=== PATIENT | male | born 1975 | race Caucasian/White ===

== ENCOUNTER 2018-07-01 06:34 | Emergency (ER) | payer BC ==
[2018-07-01 07:18] LABS: Protime INR 1.07
[2018-07-01 07:34] LABS: ALT/SGPT 25 U/L (12-78); AST/SGOT 13 U/L (15-37); Albumin 3.6 g/dL (3.4-5.0); Alkaline Phosphatase 63 U/L (45-117); BUN Blood Urea Nitrogen 18 mg/dL (7-18); Bicarbonate 28 mmol/L (21-32); Bilirubin Direct 0.1 mg/dL (0-0.2); Bilirubin Total 0.4 mg/dL (0.2-1.0); Glucose Level 106 mg/dL (74-106); Magnesium 2.2 mg/dL (1.8-2.4); NT PRO-BNP 30 pg/mL (<125); Potassium 3.9 mmol/L (3.5-5.1); Protein, Total 6.7 g/dL (6.4-8.2); Sodium Level 142 mmol/L (136-145); Troponin (Emerg Dept Use Only) < 0.02 ng/mL (0.0-0.045)
--- NOTE | 2018-07-01 07:41 | RAD REPORT ---
EXAM DESCRIPTION: CT - Head Brain Wo Cont - 07/01/2018 7:15 am CLINICAL HISTORY: Dizziness COMPARISON: None. TECHNIQUE: Computed axial tomography of the head was obtained. IV contrast was not requested. All CT scans are performed using dose optimization technique as appropriate and may include automated exposure control or mA/KV adjustment according to patient size. FINDINGS: An intracranial bleed is not seen . The ventricles are normal in caliber. No extra-axial fluid collection is noted. Fluid within the sinuses/ mastoids is not seen. A mucus retention cyst is seen within the left maxill twin sinus IMPRESSION: No acute intracranial abnormality is seen. If patient's symptoms persist MRI of the bra in would be recommended.
[2018-07-01] MEDS ORDERED: NA CHLORIDE 0.9% 1,000 ML ONE (07:59)
[2018-07-01 08:06] LABS: Absolute Lymphocytes (CBC) 1.7 K/uL (0.7-4.9); Absolute Monocytes 0.9 K/uL (0.1-1.3); Absolute Neutrophil 9.4 K/uL (1.8-8.0); Basophils % 0.5 % (0-1.3); Eosinophils % 1.3 % (0-4.4); Hematocrit 44.9 % (39.6-49.0); Lymphocytes % 13.7 % (15.3-44.8); Monocytes % 7.7 % (3.3-12.3); RBC Red Blood Cell Count 5.15 M/uL (4.33-5.43)
--- NOTE | 2018-07-01 08:07 | RAD REPORT ---
EXAM DESCRIPTION: Pily Single View07/01/2018 7:10 am CLINICAL HISTORY: Chest pain COMPARISON: none FINDINGS: The lungs appear clear of acute infiltrate. The heart is normal size IMPRESSION: No acute abnormalities displayed
--- NOTE | 2018-07-01 08:38 | EDPHYS ---
Physician Documentation [facility] Name: Javier Kirby Age: 43 yrs Sex: Male : 1975 Arrival Date: 07/01/2018 Time: 06:35 Bed 19 Private MD: ED Physician Francesco Vázquez HPI: 07/01 06:51 This 43 yrs old Male presents to ER via Ambulatory with complaints of kb Dizziness. 06:51 The patient presents with feeling faint, lightheadedness. Onset: The symptoms/episode kb began/occurred just prior to arrival. Context: occurred on a street or driveway, occurred while the patient was driving. just prior to the episode the patient experienced no apparent symptoms. Modifying factors: The symptoms are alleviated by nothing, the symptoms are aggravated by nothing. Associated signs and symptoms: Pertinent positives: near-syncope, Pertinent negatives: abdominal pain, agitation, ataxia, blurred vision, chest pain, combativeness, confusion, diaphoresis, focal weakness, head injury, headache, nausea, numbness, palpitations, , seizure, shortness of breath, syncope, tingling, vomiting. Severity of symptoms: At their worst the symptoms were moderate in the emergency department the symptoms are unchanged. Patient's baseline: Neuro: alert and fully oriented, Motor: no deficits, Ambulation: walks without assistance, Speech: normal. The patient has not experienced similar symptoms in the past. The patient has not recently seen a physician. Pt reports he started feeling like he was going to pass out when he got into his car. Symptoms got worse as he drove to work. States he had dropped off his kids at daycare and driven to the convenient store prior to incident and did not have these symptoms, they started after leaving convenient store. States he felt lightheaded and like he was going to pass out. Once he got to work he called his boss to his truck and they told him he needed to be evaluated. Pt worried that his blood sugar is the cause. Reports he was diagnosed with borderline diabetes and diabetes runs in his family. Pt is on 3 blood pressure medications, but has not had a problem with them in the past. . Historical: - Allergies: 06:49 No Known Allergies; fc - Home Meds: 06:49 doxazosin oral oral 2 mg tab and 1 mg tab both daily [Active]; amlodipine oral once fc daily [Active]; - PMHx: 06:49 Hypertension; fc - PSHx: 06:49 Knee surgery; fc - Immunization history:: Last tetanus immunization: unknown, Flu vaccine is not up to date. - Social history:: Smoking status: Patient/guardian denies using tobacco, Patient/guardian denies using alcohol, street drugs. - Ebola Screening: : Patient negative for fever greater than or equal to 101.5 degrees Fahrenheit, and additional compatible Ebola Virus Disease symptoms Patient denies exposure to infectious person Patient denies travel to an Ebola-affected area in the 21 days before illness onset. ROS: 06:49 Constitutional: Negative for fever, chills, and weight loss, ENT: Negative for injury, kb pain, and discharge, Neck: Negative for injury, pain, and swelling, Cardiovascular: Negative for chest pain, palpitations, and edema, Respiratory: Negative for shortness of breath, cough, wheezing, and pleuritic chest pain, Abdomen/GI: Negative for abdominal pain, nausea, vomiting, diarrhea, and constipation, MS/Extremity: Negative for injury and deformity, Skin: Negative for injury, rash, and discoloration. 06:49 Neuro: Positive for near syncope. Exam: 06:51 Constitutional: This is a well developed, well nourished patient who is awake, alert, kb and in no acute distress. Head/Face: Normocephalic, atraumatic. Eyes: Pupils equal round and reactive to light, extra-ocular motions intact. Lids and lashes normal. Conjunctiva and sclera are non-icteric and not injected. Cornea within normal limits. Periorbital areas with no swelling, redness, or edema. ENT: Nares patent. No nasal discharge, no septal abnormalities noted. Tympanic membranes are normal and external auditory canals are clear. Oropharynx with no redness, swelling, or masses, exudates, or evidence of obstruction, uvula midline. Mucous membranes moist. Neck: Trachea midline, no thyromegaly or masses palpated, and no cervical lymphadenopathy. Supple, full range of motion without nuchal rigidity, or vertebral point tenderness. No Meningismus. Chest/axilla: Normal chest wall appearance and motion. Nontender with no deformity. No lesions are appreciated. Cardiovascular: Regular rate and rhythm with a normal S1 and S2. No gallops, murmurs, or rubs. Normal PMI, no JVD. No pulse deficits. Respiratory: Lungs have equal breath sounds bilaterally, clear to auscultation and percussion. No rales, rhonchi or wheezes noted. No increased work of breathing, no retractions or nasal flaring. Abdomen/GI: Soft, non-tender, with normal bowel sounds. No distension or tympany. No guarding or rebound. No evidence of tenderness throughout. Back: No spinal tenderness. No costovertebral tenderness. Full range of motion. Skin: Warm, dry with normal turgor. Normal color with no rashes, no lesions, and no evidence of cellulitis. MS/ Extremity: Pulses equal, no cyanosis. Neurovascular intact. Full, normal range of motion. Neuro: Awake and alert, GCS 15, oriented to person, place, time, and situation. Cranial nerves II-XII grossly intact. Motor strength 5/5 in all extremities. Sensory grossly intact. Cerebellar exam normal. Normal gait. Vital Signs: 06:38 BP 138 / 77; Pulse 91; Resp 18; Temp 98.1(O); Pulse Ox 99% on R/A; Weight 86.18 kg (R); fc Height 5 ft. 10 in. (177.80 cm); Pain 0/10; 06:55 BP 114 / 60 Supine; Pulse 77; Resp 16; Pulse Ox 98% ; rr5 06:56 BP 115 / 74 Sitting; Pulse 80; Resp 17; Pulse Ox 97% ; rr5 06:57 BP 113 / 63 Standing; Pulse 90; Resp 17; Pulse Ox 96% ; rr5 06:38 Body Mass Index 27.26 (86.18 kg, 177.80 cm) NIH Stroke Scale Scores: 06:51 NIHSS Score: 0 kb MDM: 06:40 Patient medically screened. kb 06:50 Data reviewed: vital signs, nurses notes. Data interpreted: Pulse oximetry: on room air kb is 99 %. Interpretation: normal. 08:37 Counseling: I had a detailed discussion with the patient and/or guardian regarding: the kb historical points, exam findings, and any diagnostic results supporting the discharge/admit diagnosis, lab results, radiology results, the need for outpatient follow up, a family practitioner, to return to the emergency department if symptoms worsen or persist or if there are any questions or concerns that arise at home. 08:37 ED course: Pt reports he feels completely back to normal. States "it's like nothing kb ever happened, I can't explain it.". 07/01 06:48 Order name: Basic Metabolic Panel; Complete Time: 07:38 kb 07/01 06:48 Order name: CBC with Diff kb 07/01 06:48 Order name: LFT's; Complete Time: 07:38 kb 07/01 06:48 Order name: Magnesium; Complete Time: 07:38 kb 07/01 06:48 Order name: NT PRO-BNP; Complete Time: 07:38 kb 07/01 06:48 Order name: PT-INR; Complete Time: 07:43 kb 07/01 06:48 Order name: Troponin (emerg Dept Use Only); Complete Time: 07:38 kb 07/01 06:48 Order name: XRAY Chest (1 view); Complete Time: 08:09 kb 07/01 06:48 Order name: EKG; Complete Time: 06:49 kb 07/01 06:48 Order name: Cardiac monitoring; Complete Time: 07:18 kb 07/01 06:48 Order name: EKG - Nurse/Tech; Complete Time: 07:18 kb 07/01 06:48 Order name: CT Head Brain wo Cont; Complete Time: 07:43 kb 07/01 09:31 Order name: Urine Dipstick--Ancillary (enter results) bd 07/01 06:48 Order name: IV Saline Lock; Complete Time: 07:18 kb 07/01 06:48 Order name: Labs collected and sent; Complete Time: 07:18 kb 07/01 06:48 Order name: O2 Per Protocol; Complete Time: 06:50 kb 07/01 06:48 Order name: O2 Sat Monitoring; Complete Time: 06:50 kb 07/01 06:48 Order name: Orthostatics; Complete Time: 07:18 kb 07/01 06:48 Order name: Blood Glucose Level; Complete Time: 07:18 kb Administered Medications: 08:05 Drug: NS 0.9% 1000 ml Route: IV; Rate: 1000 ml; Site: right antecubital; ph Point of Care Testing: Blood Glucose: 07:00 Blood Glucose: 99 mg/dL; rr5 Ranges: Critical Glucose Levels:Adult <50 mg/dl or >400 mg/dl <40 mg/dl or >180 mg/dl Disposition: 07/01/18 08:37 Discharged to Home. Impression: Dizziness and giddiness. - Condition is Stable. - Discharge Instructions: Near-Syncope, [id number], Dizziness, [id number]. - Medication Reconciliation Form, Thank You Letter, Antibiotic Education, Prescription Opioid Use, Work release form form. - Follow up: Emergency Department; When: As needed; Reason: Worsening of condition. Follow up: Private Physician; When: 2 - 3 days; Reason: Recheck today's complaints, Continuance of care, Re-evaluation by your physician. NIH Stroke Scale - NIH Stroke Score Date: 07/01/2018 Time: 06:51 Total Score = 0 1a. Level of Consciousness (LOC) - 0(Alert) 1b. Level of Consciousness (LOC) (Year \\T\\ Age) - 0(Both) 1c. LOC Commands (Open \\T\\ Closes Eyes/[employer] Mdm Developer) - 0(Both) 2. Best Gaze (Lateral Gaze Paresis) - 0(Normal) 3. Visual Field Loss - 0(No visual loss) 4. Facial Palsy - 0(Normal) 5a. Left Arm: Motor (10-second hold) - 0(No drift) 5b. Right Arm: Motor (10-second hold) - 0(No drift) 6a. Left Leg: Motor (5-second hold - always test supine) - 0(No drift) 6b. Right Leg: Motor (5-second hold - always test supine) - 0(No drift) 7. Limb Ataxia (finger/nose \\T\\ heel/fernandez - test with eyes open) - 0(Absent) 8. Sensory Loss (pinprick arms/legs/face) - 0(Normal) 9. Best Language: Aphasia (description/naming/reading) - 0(No aphasia) 10. Dysarthria (speech clarity - read or repeat words) - 0(Normal) 11. Extinction and Inattention (visual/tactile/auditory/spatial/personal) - 0(No abnormality) Initials: kb Addendum: 07/03/2018 11:18 Co-signature as Attending Physician, Francesco Vázquez MD I agree with the [facility] assessment and plan of care. Signatures: Dispatcher [employer] Gia Chinchilla, ENGINEERING SUPPLIES SALES-C ENGINEERING [employer]PPL[employer] SALES-Francesco Mcfarland MD MD cha Chretien, Felicia, RN RN fc Carol Zurita RN RN ph Corrections: (The following items were deleted from the chart) 07/01 09:40 08:37 07/01/2018 08:37 Discharged to Home. Impression: Dizziness and giddiness. ph Condition is Stable. Forms are Medication Reconciliation Form, Thank You Letter, Antibiotic Education, Prescription Opioid Use. Follow up: Emergency Department; When: As needed; Reason: Worsening of condition. Follow up: Private Physician; When: 2 - 3 days; Reason: Recheck today's complaints, Continuance of care, Re-evaluation by your physician. kb
--- NOTE | 2018-07-01 08:38 | ER ---
Nurse's Notes [facility] Name: Javier Kirby Age: 43 yrs Sex: Male : 1975 Arrival Date: 07/01/2018 Time: 06:35 Bed 19 Private MD: Diagnosis: Dizziness and giddiness Presentation: 07/01 06:38 Presenting complaint: Patient states: that he was driving to work and felt as if he was fc going to pass out. Having trouble concentrating. Feels very faint. Symptoms worse when he is moving. Transition of care: patient was not received from another setting of care. Onset of symptoms was July 01, 2018. Risk Assessment: Do you want to hurt yourself or someone else? Patient reports no desire to harm self or others. Initial Sepsis Screen: Does the patient meet any 2 criteria? HR > 90 bpm. Yes Does the patient have a suspected source of infection? No. Patient's initial sepsis screen is negative. Care prior to arrival: None. 06:38 Method Of Arrival: Ambulatory fc 06:38 Acuity: CLIFTON 3 fc Historical: - Allergies: 06:49 No Known Allergies; fc - Home Meds: 06:49 doxazosin oral oral 2 mg tab and 1 mg tab both daily [Active]; amlodipine oral once fc daily [Active]; - PMHx: 06:49 Hypertension; fc - PSHx: 06:49 Knee surgery; fc - Immunization history:: Last tetanus immunization: unknown, Flu vaccine is not up to date. - Social history:: Smoking status: Patient/guardian denies using tobacco, Patient/guardian denies using alcohol, street drugs. - Ebola Screening: : Patient negative for fever greater than or equal to 101.5 degrees Fahrenheit, and additional compatible Ebola Virus Disease symptoms Patient denies exposure to infectious person Patient denies travel to an Ebola-affected area in the 21 days before illness onset. Screenin:00 Abuse screen: Denies threats or abuse. Denies injuries from another. Nutritional rr5 screening: No deficits noted. Tuberculosis screening: No symptoms or risk factors identified. Fall Risk IV access (20 points). Total Francis Fall Scale indicates No Risk (0-24 pts). Assessment: 06:40 General: Appears in no apparent distress. comfortable, Behavior is calm, cooperative, rr5 appropriate for age. 06:40 Pain: Denies pain. Neuro: Level of Consciousness is awake, alert, obeys commands, rr5 Oriented to person, place, time, Reports dizziness, feels gonna faint and getting worse when I move.. Cardiovascular: Capillary refill < 3 seconds Patient's skin is warm and dry. Respiratory: Airway is patent Respiratory effort is even, unlabored, Respiratory pattern is regular, symmetrical. GI: No signs and/or symptoms were reported involving the gastrointestinal system. : No signs and/or symptoms were reported regarding the genitourinary system. EENT: No signs and/or symptoms were reported regarding the EENT system. Derm: Skin is intact, Skin temperature is warm. Musculoskeletal: Capillary refill < 3 seconds, Range of motion: intact in all extremities. 07:55 Reassessment: Patient appears in no apparent distress at this time. Patient and/or ph family updated on plan of care and expected duration. Pain level reassessed. Patient is alert, oriented x 3, equal unlabored respirations, skin warm/dry/pink. Pt ambulated to restroom, gait steady, denies dizziness Patient states feeling better. Patient states symptoms have improved. Vital Signs: 06:38 BP 138 / 77; Pulse 91; Resp 18; Temp 98.1(O); Pulse Ox 99% on R/A; Weight 86.18 kg (R); fc Height 5 ft. 10 in. (177.80 cm); Pain 0/10; 06:55 BP 114 / 60 Supine; Pulse 77; Resp 16; Pulse Ox 98% ; rr5 06:56 BP 115 / 74 Sitting; Pulse 80; Resp 17; Pulse Ox 97% ; rr5 06:57 BP 113 / 63 Standing; Pulse 90; Resp 17; Pulse Ox 96% ; rr5 06:38 Body Mass Index 27.26 (86.18 kg, 177.80 cm) NIH Stroke Scale Scores: 06:51 NIHSS Score: 0 kb ED Course: 06:35 Patient arrived in ED. ds1 06:38 Arm band placed on Patient placed in an exam room, on a stretcher. fc 06:40 Gia Richards FNP-C is [facility]. kb 06:40 Francesco Vázquez MD is Attending Physician. kb 06:48 Triage completed. fc 06:55 Patient has correct armband on for positive identification. Placed in gown. Bed in low rr5 position. Call light in reach. faceter on. Pulse ox on. NIBP on. 07:00 Inserted saline lock: 22 gauge in right forearm, using aseptic technique. Blood rr5 collected. 07:[address] via wheelchair. kw1 07:09 X-ray completed. Portable x-ray completed in exam room. Patient tolerated procedure jb2 well. 07:10 XRAY Chest (1 view) In Process Unspecified. EDMS 07:13 CT completed. Patient tolerated procedure well. Patient moved to CT via wheelchair. vr Patient moved back from CT. 07:15 CT Head Brain wo Cont In Process Unspecified. EDMS 07:43 Carol Zurita, RN is Primary Nurse. ph Administered Medications: 08:05 Drug: NS 0.9% 1000 ml Route: IV; Rate: 1000 ml; Site: right antecubital; ph Point of Care Testing: Blood Glucose: 07:00 Blood Glucose: 99 mg/dL; rr5 Ranges: Outcome: 08:37 Discharge ordered by . kb 09:40 Patient left the ED. NIH Stroke Scale - NIH Stroke Score Date: 07/01/2018 Time: 06:51 Total Score = 0 1a. Level of Consciousness (LOC) - 0(Alert) 1b. Level of Consciousness (LOC) (Year \T\ Age) - 0(Both) 1c. LOC Commands (Open \T\ Closes Eyes/Supervisor Accounts Receivable) - 0(Both) 2. Best Gaze (Lateral Gaze Paresis) - 0(Normal) 3. Visual Field Loss - 0(No visual loss) 4. Facial Palsy - 0(Normal) 5a. Left Arm: Motor (10-second hold) - 0(No drift) 5b. Right Arm: Motor (10-second hold) - 0(No drift) 6a. Left Leg: Motor (5-second hold - always test supine) - 0(No drift) 6b. Right Leg: Motor (5-second hold - always test supine) - 0(No drift) 7. Limb Ataxia (finger/nose \T\ heel/fernandez - test with eyes open) - 0(Absent) 8. Sensory Loss (pinprick arms/legs/face) - 0(Normal) 9. Best Language: Aphasia (description/naming/reading) - 0(No aphasia) 10. Dysarthria (speech clarity - read or repeat words) - 0(Normal) 11. Extinction and Inattention (visual/tactile/auditory/spatial/personal) - 0(No abnormality) Initials: kb Signatures: Dispatcher [employer] Gia Chinchilla FNP-C FNP-Ckb Buechter, Jesse jb2 Erma Ford RN RN Deepa Rodriguez ds1 Jeannie Titus Patricia, RN RN Stacy Uriostegui 1 Howard Allen RN RN rr5 Corrections: (The following items were deleted from the chart) 07:57 07:55 Reassessment: Patient appears in no apparent distress at this time. ph Patient and/or family updated on plan of care and expected duration. Pain level reassessed. Patient is alert, oriented x 3, equal unlabored respirations, skin warm/dry/pink. Patient states feeling better. Patient states symptoms have improved. ph
--- NOTE | 2018-07-01 09:07 | EKG ---
Test Date: 2018-07-01 Test Time: 06:56:43 Brick Burner: RR MEASUREMENT RESULTS: Intervals: Rate: 77 NE: 154 QRSD: 104 QT: 368 QTc: 416 [place]: P: 65 NE: 154 QRS: 82 T: 42 INTERPRETIVE STATEMENTS: Normal sinus rhythm Normal ECG No previous ECG available for comparison Electronically Signed On 07-01-18 09:06:40 COUNTER MAKER by Tomas Verde
[2018-07-01 10:28] LABS: Urine Blood NEGATIVE (NEG); Urine Glucose NEGATIVE (NEG); Urine Protein NEGATIVE (NEG)
[2018-07-01 14:16] LABS: Urine White Blood Cell Casts OK
[2018-07-01 14:17] LABS: Blood Morphology Comment NOT SEEN (NOT SEEN); Platelet Estimate ADEQ
== END 2018-07-01 09:40 | disposition home or self-care (01) ==
LOC: ER 06:34
DX: R42 Dizziness and giddiness (principal); I10 Essential (primary) hypertension
CPT/HCPCS: 36415; 70450; 71045; 80048; 80076; 81003; 82962; 83735; 83880; 84484; 85025; 85610; 93005; 99285; J7030

== ENCOUNTER 2019-02-10 09:13 | Emergency (ER) | payer BC ==
[2019-02-10] MEDS ORDERED: MUPIROCIN 2% OINT 22GM TUBE TOP ONE (10:29)
[2019-02-10] MEDS ORDERED: SMZ./TMP. 800/160 MG TABLET ONE (10:29)
--- NOTE | 2019-02-10 10:33 | ER ---
Nurse's Notes [facility] Name: Javier Kirby Age: 43 yrs Sex: Male : 1975 Arrival Date: 02/10/2019 Time: 09:15 Bed 18 Private MD: Sherine Nava Diagnosis: Cellulitis and acute lymphangitis of other parts of limb-right elbow bursa Presentation: 02/10 09:21 Presenting complaint: Patient states: R ELBOW SWELLING x 2 WEEKS. Transition of care: bp patient was not received from another setting of care. Onset of symptoms is unknown. Risk Assessment: Do you want to hurt yourself or someone else? Patient reports no desire to harm self or others. Initial Sepsis Screen: Does the patient meet any 2 criteria? No. Patient's initial sepsis screen is negative. Does the patient have a suspected source of infection? No. Patient's initial sepsis screen is negative. Care prior to arrival: None. 09:21 Method Of Arrival: Ambulatory bp 09:21 Acuity: CLIFTON 3 bp Historical: - Allergies: 09:23 No Known Allergies; bp - Home Meds: 09:23 amlodipine oral once daily [Active]; doxazosin Oral 2 mg tab and 1 mg tab both daily bp [Active]; losartan oral oral [Active]; - PMHx: 09:23 Hypertension; bp - Immunization history:: Adult Immunizations up to date, Last tetanus immunization: unknown. - Social history:: Smoking status: Patient uses tobacco products, chewing tobacco. - Ebola Screening: : No symptoms or risks identified at this time. - Family history:: not pertinent. Assessment: 09:30 General: Appears in no apparent distress. well groomed, well developed, well nourished, sg Behavior is calm, cooperative, appropriate for age. Pain: Complains of pain in right elbow. Neuro: Level of Consciousness is awake, alert, obeys commands. Cardiovascular: Patient's skin is warm and dry. Chest pain is denied. Respiratory: Airway is patent Respiratory effort is even, unlabored, Respiratory pattern is regular, symmetrical, Denies cough, shortness of breath labored breathing, pain with respiration, pain with cough, pain with movement. GI: No signs and/or symptoms were reported involving the gastrointestinal system. : No signs and/or symptoms were reported regarding the genitourinary system. EENT: No signs and/or symptoms were reported regarding the EENT system. Derm: Skin is intact, is healthy with good turgor, Skin is pink, warm \T\ dry. Rash noted that is red, on right elbow. Musculoskeletal: Circulation, motion, and sensation intact. Range of motion: intact in all extremities. Vital Signs: 09:23 BP 118 / 66; Pulse 95; Resp 17; Temp 98.3; Pulse Ox 97% ; Weight 88.45 kg; Height 5 ft. bp 10 in. (177.80 cm); 09:23 Body Mass Index 27.98 (88.45 kg, 177.80 cm) bp ED Course: 09:15 Patient arrived in ED. as 09:15 Sherine Nava MD is Private Physician. as 09:22 Triage completed. bp 09:23 Arm band placed on. bp 09:24 Jake Liz RN is Primary Nurse. sg 09:30 Patient has correct armband on for positive identification. Bed in low position. Call sg light in reach. Pulse ox on. NIBP on. 09:44 Francesco Vázquez MD is Attending Physician. sun 10:31 Sherine Nava MD is Referral Physician. sun 10:32 Joseph Macdonald MD is Referral Physician. sun 13:30 No provider procedures requiring assistance completed. Patient did not have IV access sg during this emergency room visit. Wound care: to cellulitis located on right elbow was cleaned with soap and water, dressed with band aid, bactroban see EMAR. Administered Medications: 10:30 Drug: Doxycycline 200 mg Route: PO; sg 10:40 Follow up: Response: No adverse reaction sg 10:33 Drug: Bactrim (160 mg-800 mg (DS) 1 tablet Route: PO; sg 10:40 Follow up: Response: No adverse reaction sg 10:33 Drug: Bactroban Ointment 2 % 1 application Route: Topical; Site: affected area; sg Outcome: 10:32 Discharge ordered by . sun 10:34 Patient left the ED. sg 13:33 Discharged to home ambulatory. sg 13:33 Condition: good 13:33 Instructed on discharge instructions, follow up and referral plans. safety practices. 13:33 Discharge instructions given to patient, Demonstrated understanding of instructions, follow-up care, medications, wound care, Prescriptions given X 3. Signatures: Jake Liz, OPAL RN Francesco Rosa MD MD cha Martinez, Amelia as Peltier, Brian, OPAL RN bp
--- NOTE | 2019-02-10 10:33 | EDPHYS ---
Physician Documentation [facility] Name: Javier Kirby Age: 43 yrs Sex: Male : 1975 Arrival Date: 02/10/2019 Time: 09:15 Bed 18 Private MD: Sherine Nava ED Physician Francesco Vázquez HPI: 02/10 10:27 This 43 yrs old Male presents to ER via Ambulatory with complaints of Insect sun Bite, Elbow Swelling. 10:27 This 43 yrs old Male presents to ER via Ambulatory with complaints of Insect sun Bite, Elbow Swelling. 10:27 The patient or guardian complains of pain, swelling, tenderness. The complaints affect sun the right elbow. Context: The problem was sustained at an unknown location, resulted from unknown cause. Onset: The symptoms/episode began/occurred 1 week(s) ago. Treatment prior to arrival includes: no previous treatment. Modifying factors: The symptoms are alleviated by remaining still, the symptoms are aggravated by movement. Associated signs and symptoms: The patient has no apparent associated signs or symptoms. Severity of symptoms: At their worst the symptoms were moderate, in the emergency department the symptoms are unchanged. Historical: - Allergies: 09:23 No Known Allergies; bp - Home Meds: 09:23 amlodipine oral once daily [Active]; doxazosin Oral 2 mg tab and 1 mg tab both daily bp [Active]; losartan oral oral [Active]; - PMHx: 09:23 Hypertension; bp - Immunization history:: Adult Immunizations up to date, Last tetanus immunization: unknown. - Social history:: Smoking status: Patient uses tobacco products, chewing tobacco. - Ebola Screening: : No symptoms or risks identified at this time. - Family history:: not pertinent. ROS: 10:27 Constitutional: Negative for fever, chills, and weight loss, Eyes: Negative for injury, sun pain, redness, and discharge, ENT: Negative for injury, pain, and discharge, Neck: Negative for injury, pain, and swelling, Cardiovascular: Negative for chest pain, palpitations, and edema, Respiratory: Negative for shortness of breath, cough, wheezing, and pleuritic chest pain, Abdomen/GI: Negative for abdominal pain, nausea, vomiting, diarrhea, and constipation, Back: Negative for injury and pain, : Negative for injury, bleeding, discharge, and swelling, MS/Extremity: Negative for injury and deformity, Neuro: Negative for headache, weakness, numbness, tingling, and seizure, Psych: Negative for depression, anxiety, suicide ideation, homicidal ideation, and hallucinations, Allergy/Immunology: Negative for hives, rash, and allergies, Endocrine: Negative for neck swelling, polydipsia, polyuria, polyphagia, and marked weight changes, Hematologic/Lymphatic: Negative for swollen nodes, abnormal bleeding, and unusual bruising. 10:27 Skin: Positive for erythema, swelling, of the right elbow. Exam: 10:27 Constitutional: This is a well developed, well nourished patient who is awake, alert, sun and in no acute distress. Head/Face: Normocephalic, atraumatic. Eyes: Pupils equal round and reactive to light, extra-ocular motions intact. Lids and lashes normal. Conjunctiva and sclera are non-icteric and not injected. Cornea within normal limits. Periorbital areas with no swelling, redness, or edema. ENT: Nares patent. No nasal discharge, no septal abnormalities noted. Tympanic membranes are normal and external auditory canals are clear. Oropharynx with no redness, swelling, or masses, exudates, or evidence of obstruction, uvula midline. Mucous membranes moist. Neck: Trachea midline, no thyromegaly or masses palpated, and no cervical lymphadenopathy. Supple, full range of motion without nuchal rigidity, or vertebral point tenderness. No Meningismus. Chest/axilla: Normal chest wall appearance and motion. Nontender with no deformity. No lesions are appreciated. Cardiovascular: Regular rate and rhythm with a normal S1 and S2. No gallops, murmurs, or rubs. Normal PMI, no JVD. No pulse deficits. Respiratory: Lungs have equal breath sounds bilaterally, clear to auscultation and percussion. No rales, rhonchi or wheezes noted. No increased work of breathing, no retractions or nasal flaring. Abdomen/GI: Soft, non-tender, with normal bowel sounds. No distension or tympany. No guarding or rebound. No evidence of tenderness throughout. Back: No spinal tenderness. No costovertebral tenderness. Full range of motion. Male : Normal genitalia with no discharge or lesions. Skin: Warm, dry with normal turgor. Normal color with no rashes, no lesions, and no evidence of cellulitis. Neuro: Awake and alert, GCS 15, oriented to person, place, time, and situation. Cranial nerves II-XII grossly intact. Motor strength 5/5 in all extremities. Sensory grossly intact. Cerebellar exam normal. Normal gait. Psych: Awake, alert, with orientation to person, place and time. Behavior, mood, and affect are within normal limits. 10:27 Musculoskeletal/extremity: Extremities: pain, swelling, tenderness. Vital Signs: 09:23 BP 118 / 66; Pulse 95; Resp 17; Temp 98.3; Pulse Ox 97% ; Weight 88.45 kg; Height 5 ft. bp 10 in. (177.80 cm); 09:23 Body Mass Index 27.98 (88.45 kg, 177.80 cm) bp MDM: 09:44 Patient medically screened. [facility] 10:27 Data reviewed: vital signs, nurses notes. [facility] 02/10 10:26 Order name: Wound dressing; Complete Time: 10:34 [facility] Administered Medications: 10:30 Drug: Doxycycline 200 mg Route: PO; sg 10:40 Follow up: Response: No adverse reaction 10:33 Drug: Bactrim (160 mg-800 mg (DS) 1 tablet Route: PO; sg 10:40 Follow up: Response: No adverse reaction 10:33 Drug: Bactroban Ointment 2 % 1 application Route: Topical; Site: affected area; sg Disposition: 02/10/19 10:32 Discharged to Home. Impression: Cellulitis and acute lymphangitis of other parts of limb - right elbow bursa. - Condition is Stable. - Discharge Instructions: Insect Bite, [id number], Insect Bite, Bursitis, Cellulitis, Adult, [id number], Elbow Bursitis, Bursitis, [id number], Elbow Bursitis, [id number]. - Prescriptions for Bactroban 2 % Topical Ointment - Apply to affected area 1 application by TOPICAL route every 12 hours; 30 gram. Doxycycline Hyclate 100 mg Oral Tablet - take 1 tablet by ORAL route every 12 hours; 20 tablet. Bactrim DS 800- 160 mg Oral Tablet - take 1 tablet by ORAL route every 12 hours for 10 days; 20 tablet. - Work release form, Medication Reconciliation Form, Thank You Letter, Antibiotic Education, Prescription Opioid Use form. - Follow up: Sherine Nava MD; When: 2 - 3 days; Reason: Recheck today's complaints, Continuance of care, Re-evaluation by your physician. Follow up: Joseph Macdonald MD; When: 2 - 3 days; Reason: Recheck today's complaints, Re-evaluation by your physician. - Problem is new. - Symptoms have improved. Signatures: Jake Liz RN RN Francesco Rosa MD MD cha Peltier, Brian RN RN bp Corrections: (The following items were deleted from the chart) 10:32 10:32 02/10/2019 10:32 Discharged to Home. Impression: Cellulitis and acute sun lymphangitis of other parts of limb - right elbow bursa. Condition is Stable. Forms are Medication Reconciliation Form, Thank You Letter, Antibiotic Education, Prescription Opioid Use. Follow up: Sherine Nava; When: 2 - 3 days; Reason: Recheck today's complaints, Continuance of care, Re-evaluation by your physician. Problem is new. Symptoms have improved. [facility] 10:34 10:32 02/10/2019 10:32 Discharged to Home. Impression: Cellulitis and acute sg lymphangitis of other parts of limb - right elbow bursa. Condition is Stable. Forms are Medication Reconciliation Form, Thank You Letter, Antibiotic Education, Prescription Opioid Use. Follow up: Sherine Nava; When: 2 - 3 days; Reason: Recheck today's complaints, Continuance of care, Re-evaluation by your physician. Follow up: Joseph Macdonald; When: 2 - 3 days; Reason: Recheck today's complaints, Re-evaluation by your physician. Problem is new. Symptoms have improved. sun
[2019-02-10] MEDS ORDERED: DOXYCYCLINE 100 MG CAP PO ONE (10:36)
[2019-02-10 10:39] VITALS: BP 118/66; TEMP 98.3; O2SAT 97
== END 2019-02-10 10:34 | disposition home or self-care (01) ==
LOC: ER 09:13
DX: L03.113 Cellulitis of right upper limb (principal); I89.1 Lymphangitis
CPT/HCPCS: 99284